=== PATIENT | female | born 2000 ===

== ENCOUNTER 2022-02-23 10:11 | Emergency (ER) | payer OTHER ==
[2022-02-23] MEDS ORDERED: predniSONE 20 MG TAB PO ONE (12:55)
--- NOTE | 2022-02-23 13:14 | Emergency Department Report ---
ED Asthma HPI - General Chief Complaint: Adult Asthma Stated Complaint: ASTHMA ATTACK PUI?: No Time Seen by Provider: 02/23/22 10:46 Source: EMS Mode of arrival: Stretcher Limitations: No Limitations - History of Present Illness MD Complaint: "asthma attack" -: Gradual Asthma History: adult onset, history of prior ED visit Severity: mild Context: none known, allergen exposure Associated Symptoms: dry cough Treatments Prior to Arrival: inhaled bronchodilator - Related Data Current Asthma Therapy: inhaled bronchodilator Previous Rx's Medication Instructions Recorded Last Taken Type predniSONE [Deltasone] 60 mg PO QDAY 5 Days #15 tab 02/23/22 Unknown Rx Allergies Allergy/AdvReac Type Severity Reaction Status Date / Time No Known Allergies Allergy Unverified 02/23/22 10:29 ED Review of Systems ROS: Stated complaint: ASTHMA ATTACK Other details as noted in HPI Comment: All other systems reviewed and negative Constitutional: no symptoms reported, see HPI Eyes: as per HPI ENT: as per HPI Respiratory: see HPI, cough. denies: orthopnea, shortness of breath, SOB with exertion, SOB at rest Cardiovascular: denies: chest pain, palpitations, dyspnea on exertion, orthopnea, edema, syncope, paroxysmal nocturnal dyspnea Endocrine: no symptoms reported Genitourinary: denies: urgency, dysuria, frequency, hematuria, discharge, abnormal menses, dyspareunia, other Musculoskeletal: denies: back pain, joint swelling Skin: denies: rash, lesions, change in color, change in hair/nails, pruritus Neurological: denies: headache, weakness, numbness, paresthesias, confusion Psychiatric: denies: anxiety, depression, auditory hallucinations, visual hallucinations, homicidal thoughts Hematological/Lymphatic: denies: easy bleeding, easy bruising, swollen glands ED Past Medical Hx - Past Medical History Previous Medical History?: Yes Hx Asthma: Yes - Surgical History Past Surgical History?: No - Family History Family history: no significant - Social History Smoking Status: Former Smoker Substance Use Type: None - Medications Home Medications: Home Medications Medication Instructions Recorded Confirmed Last Taken Type predniSONE [Deltasone] 60 mg PO QDAY 5 Days #15 tab 02/23/22 Unknown Rx ED Physical Exam - General Limitations: No Limitations - Head Head exam: Present: atraumatic, normocephalic, normal inspection - Eye Eye exam: Present: normal appearance, PERRL, EOMI Pupils: Present: normal accommodation - ENT ENT exam: Present: normal exam, normal orophraynx. Absent: mucous membranes dry, mucous membranes moist - Neck Neck exam: Present: normal inspection, tenderness, full ROM, lymphadenopathy, thyromegaly - Respiratory Respiratory exam: Present: normal lung sounds bilaterally. Absent: respiratory distress, wheezes, rales, rhonchi, stridor, chest wall tenderness, accessory muscle use, decreased breath sounds, prolonged expiratory, other (Lungs clear to auscultation bilaterally, no wheezes rales or rhonchi) - Cardiovascular Cardiovascular Exam: Present: regular rate, normal rhythm. Absent: bradycardia, tachycardia, irregular rhythm - GI/Abdominal GI/Abdominal exam: Present: soft, normal bowel sounds. Absent: distended, tende rness, guarding, rebound, rigid, diminished bowel sounds, hyperactive bowel sounds, hypoactive bowel sounds, organomegaly, mass, bruit, pulsatile mass - Extremities Exam Extremities exam: Present: normal inspection, full ROM, normal capillary refill - Back Exam Back exam: Present: normal inspection, full ROM. Absent: tenderness, CVA tenderness (R), CVA tenderness (L), muscle spasm, paraspinal tenderness, vertebral tenderness - Neurological Exam Neurological exam: Present: alert, CN II-XII intact - Psychiatric Psychiatric exam: Present: normal affect, anxious. Absent: normal mood, depressed, agitated, flat affect, manic, homicidal ideation - Skin Skin exam: Present: warm, dry, intact ED Course Vital Signs 02/23/22 02/23/22 02/23/22 10:21 10:22 10:31 Temperature 99.1 F Pulse Rate 111 H 112 H 123 H Respiratory 24 20 15 Rate Blood Pressure 125/70 O2 Sat by Pulse 100 100 100 Oximetry 02/23/22 02/23/22 02/23/22 10:34 10:45 11:01 Temperature Pulse Rate 117 H 122 H Respiratory 11 L 19 Rate Blood Pressure 152/75 O2 Sat by Pulse 99 100 100 Oximetry 02/23/22 02/23/22 02/23/22 11:15 11:31 11:45 Temperature Pulse Rate 112 H 109 H 112 H Respiratory 17 23 22 Rate Blood Pressure 152/75 139/57 139/57 O2 Sat by Pulse 100 99 100 Oximetry - Reevaluation(s) Reevaluation #1: 02/23/22 13:21 Patient is comfortable and well-appearing, speaking in full sentences, no drooling no stridor no respiratory distress, nontoxic-appearing ED Medical Decision Making - Lab Data Result diagrams: 02/23/22 12:05 02/23/22 12:05 - Radiology Data Radiology results: report reviewed - Medical Decision Making 21-year-old female with self-reported history of juvenile onset asthma presents for evaluation of wheezing cough shortness of breath. EMS was not present at the time of my evaluation of the patient but per Per nursing report the patient received Decadron 20 mg IM, epinephrine, and a DuoNeb. The patient was persistently evaluated here by me upon multiple reassessment and she remained extremely comfortable and well-appearing. Her respiratory rate as measured by me was 16 breaths/min. She has no tachypnea hypoxemia or dyspnea or evidence of active respiratory compromise. Her lungs were clear to auscultation bilaterally. She ambulated to and from the restroom and remained clinically stable and denied any recurrence of her previous symptoms or worsening symptoms. Chest x-ray and labs reviewed. Patient deemed stable for discharge to home. Critical care attestation.: If time is entered above; I have spent that time in minutes in the direct care of this critically ill patient, excluding procedure time. ED Disposition Clinical Impression: Asthma exacerbation Disposition: 01 HOME / SELF CARE / HOMELESS Is pt being admited?: No Does the pt Need Aspirin: No Condition: Stable Instructions: Asthma, Adult Additional Instructions: Please take prednisone daily,starting on tomorrow, February 24, 2022. Use your inhaler 2 puffs every 4 hours as needed for wheezing and/or cough shortness of breath. Follow-up with your primary care doctor this week for reassessment. Avoid exposing yourself to any possible fumes or substances which may trigger your symptoms. Return to the nearest emergency department thank you as soon as possible if you develop chest pain, worsening shortness of breath, dizziness, lightheadedness, or if any other new worrisome symptoms develop. Prescriptions: predniSONE [Deltasone] 60 mg PO QDAY 5 Days #15 tab Referrals: GAYATHRI CARR MD [Primary Care Provider] - 3-5 Days Time of Disposition: 14:39
[2022-02-23 13:33] LABS: Basophils # (Auto) 0.1 K/mm3 (0.0-0.1); Basophils % (Auto) 0.7 % (0.0-1.8); Eosinophils % (Auto) 0.1 % (0.0-4.3); Hematocrit 37.3 % (30.3-42.9); Hemoglobin 12.4 gm/dl (10.1-14.3); Lymphocytes # (Auto) 1.2 K/mm3 (1.2-5.4); Lymphocytes % (Auto) 10.6 % (13.4-35.0); Mean Corpuscular HGB Conc 33 % (30-34); Mean Corpuscular Volume 88 fl (79-97); Monocytes # (Auto) 0.3 K/mm3 (0.0-0.8); Monocytes % (Auto) 2.4 % (0.0-7.3); Platelet Count 302 K/mm3 (140-440); Red Blood Count 4.22 M/mm3 (3.65-5.03); Red Cell Distribution Width 14.8 % (13.2-15.2)
[2022-02-23 13:42] LABS: Blood Urea Nitrogen 8 mg/dL (7-17); Calcium 9.5 mg/dL (8.4-10.2); Hemolysis Index 7
[2022-02-23 13:43] LABS: BUN/Creatinine Ratio 11
--- NOTE | 2022-02-23 14:14 | XRay Report ---
CHEST 1 VIEW INDICATION / CLINICAL INFORMATION: wheezing, hx of asthma. COMPARISON: None available. FINDINGS: SUPPORT DEVICES: None. HEART / MEDIASTINUM: No significant abnormality. LUNGS / PLEURA: No significant pulmonary or pleural abnormality. No pneumothorax. ADDITIONAL FINDINGS: No significant additional findings. IMPRESSION: 1. No acute findings. Signer Name: Bacilio Perez MD Signed: 02/23/2022 2:09 PM Workstation Name: [id number]
[2022-02-23] MEDS ORDERED: ONDANSETRON 4 MG ODT TAB PO ONE (14:17)
[2022-02-23 16:16] VITALS: BP 130/67
== END 2022-02-23 15:45 | disposition home or self-care (01) ==
LOC: ED 10:11
DX: J45.901 Unspecified asthma with (acute) exacerbation (principal)
CPT/HCPCS: 36415; 71045; 80048; 84702; 85025; 99284; J3490; Q0162